=== PATIENT | male | born 1940 | race African-American/Black ===

== ENCOUNTER 2018-02-27 19:19 | Inpatient (IN) | payer MEDICARE, BC, OTHER | END 2018-03-03 18:50 | disposition home or self-care (01) | LOC: TELE 02-28 05:05 → WEST WING 03-02 00:41 → ER 19:19 → TELE-WESTW 03-01 21:06 | DX: A41.9 Sepsis, unspecified organism (principal); G93.41 Metabolic encephalopathy; C18.9 Malignant neoplasm of colon, unspecified; R64 Cachexia; E88.09 Other disorders of plasma-protein metabolism, not elsewhere classified; D50.9 Iron deficiency anemia, unspecified; E86.0 Dehydration; I10 Essential (primary) hypertension ==